=== PATIENT | female | born 1990 | race Caucasian/White ===

== ENCOUNTER 2021-08-15 22:56 | Emergency (ER) | payer OTHER, SELFPAY ==
[2021-08-15 23:40] VITALS: BP 130/96; PULSE 89; RESP 14; TEMP 36.6; O2SAT 98
--- NOTE | 2021-08-16 00:06 | PC.NURSE ---
Pt and visitor told this RN they would be going outside for some air .
--- NOTE | 2021-08-16 00:15 | ED.GENADULT ---
HPI - General Adult General Chief complaint: Unspecified Stated complaint: sore throat, ear pain, CP Time Seen by Provider: 08/16/21 00:08 History of Present Illness HPI narrative: 31-year-old female presents emergency room for evaluation of bilateral ear pain and a sore throat. Patient states the symptoms started abruptly earlier this evening. Patient has a history of allergic rhinitis and asthma. Patient states that she feels like her ears are full and are about to burst. Patient denies fever. Patient denies shortness of breath, difficulty breathing, or chest pain. Patient denies sinus congestion, postnasal drip, or frequently clearing her throat. Patient denies any recent air travel. Related Data Home Medications Medication Instructions Recorded Confirmed azelastine INTRANASAL 08/16/21 fluticasone propion-salmeterol INHALATION 08/16/21 [Advair Diskus] fluticasone propionate INTRANASAL 08/16/21 Allergies Allergy/AdvReac Type Severity Reaction Status Date / Time No Known Allergies Allergy Unverified 07/30/21 08:49 Review of Systems Review of Systems: CONSTITUTIONAL: Denies fever, chills, or sweats. EYES: Denies visual changes, redness, or discharge. ENT: Bilateral ear pain, sore throat CARDIOVASCULAR: Denies chest pain, palpitations, or edema. RESPIRATORY: Denies cough or dyspnea. GASTROINTESTINAL: Denies abdominal pain, nausea, vomiting, or diarrhea. GENITOURINARY: Denies dysuria or hematuria. SKIN: Denies rash or itching. MUSCULOSKELETAL: Denies back pain, joint pain, or myalgia. NEUROLOGIC: Denies headache, numbness, dizziness, or weakness. PSYCHIATRIC: Denies anxiety or depression. [facility] Social History Social History Smoking status: Never smoker Alcohol intake: current Exam Narrative: GENERAL: Well-appearing, well-nourished, and in no acute distress. HEAD: Normocephalic, atraumatic. EYES: PERRLA and EOMI. ENT: Nares clear, no rhinorrhea or epistaxis. Mucous membranes moist. Oropharynx without tonsillar hypertrophy exudate. Bilateral TMs pearly aden with clear effusion NECK: Supple. No adenopathy or masses. No carotid bruits or JVD, tenderness extending from the ear around the corner of the mandible into the throat CHEST: Clear to auscultation. No respiratory distress. No wheezes rales or rhonchi HEART: Regular rate and rhythm. No murmur heard. Normal peripheral pulses. EXTREMITIES: Normal range of motion. No edema. SKIN: Warm, dry, no rash. NEURO: No focal deficits. Alert and oriented x3. PSYCH: Normal mood and affect. Course Vital Signs Vital signs: Vital Signs Temperature 36.6 C 08/15/21 23:40 Pulse Rate 89 08/15/21 23:40 Respiratory Rate 14 08/15/21 23:40 Blood Pressure 130/96 H 08/15/21 23:40 Pulse Oximetry 98 08/15/21 23:40 Temperature 36.6 C 08/15/21 23:40 Pulse Rate 89 08/15/21 23:40 Respiratory Rate 14 08/15/21 23:40 Blood Pressure 130/96 H 08/15/21 23:40 Pulse Oximetry 98 08/15/21 23:40 Medical Decision Making Vital Signs Vital Signs: Vital Signs Temperature 36.6 C 08/15/21 23:40 Pulse Rate 89 08/15/21 23:40 Respiratory Rate 14 08/15/21 23:40 Blood Pressure 130/96 H 08/15/21 23:40 Pulse Oximetry 98 08/15/21 23:40 Temperature 36.6 C 08/15/21 23:40 Pulse Rate 89 08/15/21 23:40 Respiratory Rate 14 08/15/21 23:40 Blood Pressure 130/96 H 08/15/21 23:40 Pulse Oximetry 98 08/15/21 23:40 Discharge Plan Discharge Clinical Impression: ET (eustachian tube disorder) Qualifiers: Laterality: bilateral Qualified Code(s): H69.93 - Unspecified Eustachian tube disorder, bilateral Patient Disposition: Home, Self-Care Condition: Stable Instructions: Antibiotic Form Additional Instructions: Recommend 30 mg Sudafed every 4-6 hours as needed to assist with your eustachian tube dysfunction Prescriptions: New prednisone 20 mg tablet
[2021-08-16 00:51] VITALS: BP 115/68; PULSE 73; RESP 16; O2SAT 98
== END 2021-08-16 00:52 | disposition home or self-care (01) ==
LOC: ANHED 08-16 00:38
PROVIDERS: Emergency Provider Nurse Practitioner Family; PCP Emergency Medicine
DX: H69.93 Unspecified Eustachian tube disorder, bilateral (principal)
CPT/HCPCS: 96372; 99283; J1100